=== PATIENT | female | born 1970 | race Two or more races ===

== ENCOUNTER 2020-12-22 13:31 | Emergency (ER) | payer MEDICARE, MEDICAID ==
[~2020-12-22] VITALS: Ht 162.6 cm; Wt 107.0 kg
[~2020-12-22 13:31] MED LIST: ATOR10TA52 PO; SERT50TA19 PO; TRAM50TA2 PO; WARF3TAB20 PO
[2020-12-22 14:35] LABS: Basophils # (auto) 0.1 10 ^3/uL (0-0.2); Basophils % (auto) 0.7 % (0.0-2.0); Eosinophils # (auto) 0.1 10 ^3/uL (0-0.8); Eosinophils % (auto) 1.5 % (0.0-7.0); Hematocrit 47.7 % (36.0-46.0); Hemoglobin 15.3 g/dL (12.2-16.2); Lymphocytes # (auto) 1.3 10 ^3/uL (0.4-5.4); Lymphocytes % (auto) 13.9 % (10.0-50.0); Mean Corpuscular Hgb Conc. 32.1 g/dL (32.0-36.0); Mean Corpuscular Volume 87.3 fL (80.0-100.0); Monocytes # (auto) 0.9 10 ^3/uL (0-1.3); Monocytes % (auto) 9.2 % (0.0-12.0); Neutrophils # (auto) 7.1 10 ^3/uL (1.6-8.6); Neutrophils % (auto) 74.7 % (37.0-80.0); Nucleated Red Blood Cells % 0.1 %; Red Blood Cells 5.47 10^6/uL (4.0-5.20); Red Cell Distribution Width 15.2 % (11.8-14.3); White Blood Cell 9.6 10^3/uL (4.4-10.8)
[2020-12-22 14:49] LABS: Potassium 3.2 mmol/L (3.5-5.1)
[2020-12-22 14:56] LABS: Albumin 3.3 g/dL (3.4-5.0); BUN/Creatinine Ratio 23.3; Bilirubin, Total 0.6 mg/dL (0.2-1.0); Calcium 9.1 mg/dL (8.5-10.1); Total Protein 7.7 g/dL (6.4-8.2)
[2020-12-22 18:04] LABS: Urine Bacteria NONE SEEN /hpf (None Seen); Urine Blood Negative /uL (Negative); Urine Specific Gravity 1.008 (1.001-1.035); Urine WBC 1 /hpf (0 - 5)
[2020-12-22 20:00] VITALS: BP 116/65
== END 2020-12-22 20:18 | disposition home or self-care (01) ==
LOC: ER 13:31
DX: L03.311 Cellulitis of abdominal wall (principal); I10 Essential (primary) hypertension; E78.5 Hyperlipidemia, unspecified; E03.9 Hypothyroidism, unspecified; Z90.49 Acquired absence of other specified parts of digestive tract; Z79.01 Long term (current) use of anticoagulants; Z79.899 Other long term (current) drug therapy; Z88.0 Allergy status to penicillin; Z88.1 Allergy status to other antibiotic agents
CPT/HCPCS: 36415; 74176; 80053; 81001; 83690; 85025

== ENCOUNTER 2021-08-22 19:42 | Emergency (ER) | payer MEDICARE, MEDICAID ==
[~2021-08-22] VITALS: Ht 162.6 cm; Wt 103.0 kg
[2021-08-22] MEDS ORDERED: FLUORESCEIN SOD OPTH TEST STRIP EACHEYE ONE (21:30)
[2021-08-22] MEDS ORDERED: TETRACAINE HCL 0.5% OPTH(EYE) SOLN 4ML EACHEYE ONE (21:30)
[2021-08-22] MEDS ORDERED: FLUORESCEIN SOD OPTH TEST STRIP RIGHTEYE ONE (22:30)
[2021-08-23 04:06] VITALS: BP 101/74
== END 2021-08-23 04:17 | disposition short-term general hospital (02) ==
LOC: ER 19:42
DX: S05.01XA Injury of conjunctiva and corneal abrasion without foreign body, right eye, initial encounter (principal); H16.001 Unspecified corneal ulcer, right eye; X58.XXXA Exposure to other specified factors, initial encounter; Y93.89 Activity, other specified; Y92.89 Other specified places as the place of occurrence of the external cause; Y99.8 Other external cause status

== ENCOUNTER 2021-08-25 11:39 | Inpatient (IN) | payer MEDICARE, MEDICAID ==
[~2021-08-25] VITALS: Ht 162.6 cm; Wt 110.9 kg
[2021-08-25 13:44] LABS: Basophils # (auto) 0.1 10 ^3/uL (0-0.2); Basophils % (auto) 0.9 % (0.0-2.0); Eosinophils # (auto) 0.3 10 ^3/uL (0-0.8); Eosinophils % (auto) 3.9 % (0.0-7.0); Hemoglobin 13.7 g/dL (12.2-16.2); Lymphocytes % (auto) 15.2 % (10.0-50.0); Mean Corpuscular Hemoglobin 30.1 pg (28.0-32.0); Mean Corpuscular Hgb Conc. 33.5 g/dL (32.0-36.0); Mean Corpuscular Volume 89.6 fL (80.0-100.0); Monocytes # (auto) 0.4 10 ^3/uL (0-1.3); Monocytes % (auto) 6.8 % (0.0-12.0); Neutrophils # (auto) 4.8 10 ^3/uL (1.6-8.6); Neutrophils % (auto) 73.2 % (37.0-80.0); Red Blood Cells 4.57 10^6/uL (4.0-5.20); Red Cell Distribution Width 15.3 % (11.8-14.3); White Blood Cell 6.6 10^3/uL (4.4-10.8)
[2021-08-25 13:59] LABS: Albumin 3.7 g/dL (3.4-5.0); Calcium 8.8 mg/dL (8.5-10.1)
[2021-08-25] MEDS ORDERED: FUROSEMIDE 40 MG/4 ML VIAL IV ONE (14:00)
[2021-08-25 14:01] LABS: Bilirubin, Total 0.5 mg/dL (0.2-1.0); Total Protein 7.2 g/dL (6.4-8.2)
[2021-08-25 14:15] LABS: INR 3.91 (0.9-1.15); Partial Thromboplastin Time 43.1 sec (23.6-33.0)
[2021-08-25] MEDS ORDERED: POTASSIUM CHL 20 Meq TABLET PO ONE (17:15)
[2021-08-25] MEDS ORDERED: levoFLOXacin 500MG 100 ML IV ONE (20:45)
[2021-08-25] MEDS ORDERED: ACETAMINOPHEN 325 MG TAB PO PRN (22:30)
[2021-08-25] MEDS ORDERED: DOCUSATE SOD 100 MG CAP PO PRN (22:30)
[2021-08-25] MEDS ORDERED: HYDROcodone-ACET 5/325MG TAB PO PRN (22:30)
[2021-08-25] MEDS ORDERED: ONDANSETRON HCL 4 MG/2 ML VIAL IV PRN (22:30)
[2021-08-25] MEDS ORDERED: NITROGLYCERIN 0.4 MG SL TAB SL PRN (23:15)
[2021-08-25] MEDS ORDERED: MORPHINE SULFATE INJ 2 MG/ml SYRG IV PRN (23:15)
[2021-08-26 03:54] LABS: Urine Bacteria FEW /hpf (None Seen); Urine Blood Negative /uL (Negative); Urine Mucus FEW (None Seen); Urine Specific Gravity 1.015 (1.001-1.035); Urine WBC <1 /hpf (0 - 5)
[2021-08-26] MEDS: SODIUM CHLOR 0.9% PF (SALINE LOCK) 10ML VIAL/SYR IV SCH ×3 (05:32→21:30)
[2021-08-26] MEDS ORDERED: AMBR10TA4 PO (05:46)
[2021-08-26] MEDS ORDERED: RIOC1TAB14 PO (05:46)
[2021-08-26 07:51] LABS: Basophils # (auto) 0 10 ^3/uL (0-0.2); Basophils % (auto) 0.8 % (0.0-2.0); Eosinophils # (auto) 0.3 10 ^3/uL (0-0.8); Eosinophils % (auto) 5.7 % (0.0-7.0); Hematocrit 40.7 % (36.0-46.0); Hemoglobin 13.5 g/dL (12.2-16.2); Lymphocytes # (auto) 0.9 10 ^3/uL (0.4-5.4); Lymphocytes % (auto) 17.6 % (10.0-50.0); Mean Corpuscular Hemoglobin 29.8 pg (28.0-32.0); Mean Corpuscular Hgb Conc. 33.2 g/dL (32.0-36.0); Mean Corpuscular Volume 89.8 fL (80.0-100.0); Monocytes # (auto) 0.5 10 ^3/uL (0-1.3); Monocytes % (auto) 9.9 % (0.0-12.0); Neutrophils # (auto) 3.2 10 ^3/uL (1.6-8.6); Nucleated Red Blood Cells % 0.3 %; Red Blood Cells 4.54 10^6/uL (4.0-5.20); Red Cell Distribution Width 15.7 % (11.8-14.3); White Blood Cell 4.9 10^3/uL (4.4-10.8)
[2021-08-26 08:11] LABS: Albumin 3.5 g/dL (3.4-5.0); BUN/Creatinine Ratio 26.8; Calcium 8.9 mg/dL (8.5-10.1); Potassium 3.8 mmol/L (3.5-5.1)
[2021-08-26 08:15] LABS: Bilirubin, Total 0.6 mg/dL (0.2-1.0)
[2021-08-26] MEDS ORDERED: AZITHROMYCIN 500MG/ 250ML 250 ML IV SCH (10:00)
[2021-08-26] MEDS ORDERED: HEPARIN SODIUM (PORCINE) 5000 UNITS/ML 1ML VIAL SC SCH (10:00)
[2021-08-26] MEDS: ASCORBIC ACID 500 MG TAB PO SCH ×2 (11:29→21:30)
[2021-08-26] MEDS: ZINC SULFATE 220mg CAP or TAB PO SCH (11:29)
[2021-08-26] MEDS: FAMOTIDINE (10MG/ML) 2ML VL IV SCH (11:30)
[2021-08-26] MEDS: FUROSEMIDE 40 MG/4 ML VIAL IV SCH (11:32)
[2021-08-26 14:16] LABS: INR 3.42 (0.9-1.15); Partial Thromboplastin Time 44.2 sec (23.6-33.0)
[2021-08-26] MEDS: ADEMPAS 2.5 MG PO SCH ×2 (14:19→22:31)
[2021-08-26 15:10] LABS: Urine Bacteria MANY /hpf (None Seen); Urine Blood Negative /uL (Negative); Urine WBC 14 /hpf (0 - 5)
[2021-08-26 15:19] LABS: Protein, Urine 26.2 mg/dL (0.0-11.9)
[2021-08-26] MEDS ORDERED: WARFARIN SODIUM 1 MG TAB PO ONE (17:00)
[2021-08-26] MEDS: SODIUM CHLORIDE 0.9% 1,000 ML IV SCH ×2 (17:01→18:01)
[2021-08-26] MEDS ORDERED: levoFLOXacin 500MG 100 ML IV ONE (17:30)
[2021-08-26 20:06] VITALS: BP 96/61
[2021-08-26] MEDS ORDERED: ATOR20TA50 PO ×2 (20:49→21:29)
[2021-08-26] MEDS ORDERED: diphenhdrAMINE HCL 25 MG CAP PO ONE ×2 (21:15→21:41)
[2021-08-26] MEDS ORDERED: FURO40TA4 PO (21:20)
[2021-08-26] MEDS ORDERED: FENO160T8 PO (21:20)
[2021-08-26] MEDS ORDERED: TRIA0.5C TOP (21:20)
[2021-08-26] MEDS ORDERED: CHOL1TAB27 PO (21:20)
[2021-08-26] MEDS ORDERED: ONDA-188 PO (21:20)
[2021-08-26] MEDS ORDERED: CHOL500033 (21:20)
[2021-08-26] MEDS ORDERED: MOXI0.5S3 EACHEYE (21:20)
[2021-08-26] MEDS ORDERED: TRI05TP TOP (21:20)
[2021-08-26] MEDS ORDERED: RIOC1TAB15 (21:20)
[2021-08-26] MEDS ORDERED: POTA-264 (21:20)
[2021-08-26] MEDS ORDERED: ERY05OO EACHEYE (21:20)
[2021-08-26] MEDS ORDERED: METO5TAB5 PO (21:20)
[2021-08-26] MEDS ORDERED: LEV25T PO (21:20)
[2021-08-26] MEDS ORDERED: DICL50TA2 PO (21:20)
[2021-08-26] MEDS ORDERED: VENL150C58 PO (21:20)
[2021-08-26] MEDS: ATORVASTATIN 20 MG TAB PO SCH (21:30)
[2021-08-26] MEDS ORDERED: CHOL500023 PO (21:34)
[2021-08-26] MEDS ORDERED: POTA10TA51 PO (21:34)
[2021-08-26] MEDS ORDERED: POTA1TAB61 PO (21:34)
[2021-08-26 22:00] VITALS: BP 97/64
[2021-08-27] VITALS (7 sets, daily range): BP systolic 96–124; BP diastolic 38–80
[2021-08-27 05:09] LABS: Basophils # (auto) 0 10 ^3/uL (0-0.2); Basophils % (auto) 0.7 % (0.0-2.0); Eosinophils # (auto) 0.2 10 ^3/uL (0-0.8); Eosinophils % (auto) 4.6 % (0.0-7.0); Hematocrit 38.6 % (36.0-46.0); Hemoglobin 12.9 g/dL (12.2-16.2); Lymphocytes % (auto) 18.7 % (10.0-50.0); Mean Corpuscular Hemoglobin 30.5 pg (28.0-32.0); Mean Corpuscular Hgb Conc. 33.5 g/dL (32.0-36.0); Mean Corpuscular Volume 91.1 fL (80.0-100.0); Monocytes # (auto) 0.5 10 ^3/uL (0-1.3); Monocytes % (auto) 9.2 % (0.0-12.0); Neutrophils # (auto) 3.5 10 ^3/uL (1.6-8.6); Neutrophils % (auto) 66.8 % (37.0-80.0); Red Blood Cells 4.24 10^6/uL (4.0-5.20); Red Cell Distribution Width 15.3 % (11.8-14.3); White Blood Cell 5.3 10^3/uL (4.4-10.8)
[2021-08-27 05:24] LABS: INR 3.32 (0.9-1.15); Partial Thromboplastin Time 43.5 sec (23.6-33.0)
[2021-08-27] MEDS: SODIUM CHLOR 0.9% PF (SALINE LOCK) 10ML VIAL/SYR IV SCH ×3 (05:53→21:09)
[2021-08-27] MEDS: ADEMPAS 2.5 MG PO SCH ×3 (05:53→21:09)
[2021-08-27] MEDS: SODIUM CHLORIDE 0.9% 1,000 ML IV SCH ×3 (06:09→22:25)
[2021-08-27] MEDS ORDERED: [UNRECOGNIZED DRUG - OTHER] PO SCH (10:00)
[2021-08-27] MEDS ORDERED: levoFLOXacin 250MG 50 ML IV SCH (10:00)
[2021-08-27] MEDS: ASCORBIC ACID 500 MG TAB PO SCH ×2 (10:09→21:09)
[2021-08-27] MEDS: ZINC SULFATE 220mg CAP or TAB PO SCH (10:09)
[2021-08-27] MEDS: FAMOTIDINE (10MG/ML) 2ML VL IV SCH (10:10)
[2021-08-27] MEDS: FUROSEMIDE 40 MG/4 ML VIAL IV SCH (10:10)
[2021-08-27] MEDS: SERTRALINE HCL 50 MG TAB PO SCH (10:10)
[2021-08-27] MEDS: AZITHROMYCIN 500MG/ 250ML 250 ML IV SCH (12:59)
[2021-08-27] MEDS ORDERED: TEMAZEPAM 15 MG CAP PO ONE (21:00)
[2021-08-27] MEDS: ATORVASTATIN 20 MG TAB PO SCH (21:09)
[2021-08-27] MEDS: DOCUSATE SOD 100 MG CAP PO SCH (21:09)
[2021-08-28 04:53] LABS: INR 2.39 (0.9-1.15); Partial Thromboplastin Time 40.3 sec (23.6-33.0)
[2021-08-28 05:11] VITALS: BP 118/61
[2021-08-28] MEDS: SODIUM CHLOR 0.9% PF (SALINE LOCK) 10ML VIAL/SYR IV SCH ×2 (05:44→14:03)
[2021-08-28] MEDS: ADEMPAS 2.5 MG PO SCH ×2 (05:45→14:03)
[2021-08-28] MEDS: SODIUM CHLORIDE 0.9% 1,000 ML IV SCH (06:40)
[2021-08-28 08:15] VITALS: BP 118/67
[2021-08-28 09:00] VITALS: BP 118/67
[2021-08-28] MEDS: FUROSEMIDE 40 MG/4 ML VIAL IV SCH (09:17)
[2021-08-28] MEDS: FAMOTIDINE (10MG/ML) 2ML VL IV SCH (09:18)
[2021-08-28] MEDS: AZITHROMYCIN 500MG/ 250ML 250 ML IV SCH (09:18)
[2021-08-28] MEDS: DOCUSATE SOD 100 MG CAP PO SCH (09:19)
[2021-08-28] MEDS: SERTRALINE HCL 50 MG TAB PO SCH (09:19)
[2021-08-28] MEDS: ZINC SULFATE 220mg CAP or TAB PO SCH (09:19)
[2021-08-28] MEDS: ASCORBIC ACID 500 MG TAB PO SCH (09:19)
[2021-08-28] MEDS ORDERED: AZIT500T66 PO (09:36)
[2021-08-28 13:00] VITALS: BP 96/62
[2021-08-28 13:22] VITALS: BP 118/67
[2021-08-28] MEDS ORDERED: WARFARIN SODIUM 2 MG TAB PO ONE (17:00)
== END 2021-08-28 18:50 | disposition home or self-care (01) | DRG 193 ==
LOC: EDBD 11:39 → ER 11:39 → TELE 23:05 → TELE-WESTW 08-26 17:37
PROVIDERS: ADMIT Nurse Practitioner Family; ATTEND Family Medicine
DX: J18.9 Pneumonia, unspecified organism (principal); J96.01 Acute respiratory failure with hypoxia; Z68.41 Body mass index [BMI] 40.0-44.9, adult; I13.0 Hypertensive heart and chronic kidney disease with heart failure and stage 1 through stage 4 chronic kidney disease, or unspecified chronic kidney disease; I27.20 Pulmonary hypertension, unspecified; E87.6 Hypokalemia; N18.9 Chronic kidney disease, unspecified; E03.9 Hypothyroidism, unspecified; Z20.822 Contact with and (suspected) exposure to COVID-19; E11.22 Type 2 diabetes mellitus with diabetic chronic kidney disease; E66.01 Morbid (severe) obesity due to excess calories; E78.00 Pure hypercholesterolemia, unspecified; E78.5 Hyperlipidemia, unspecified; F32.A Depression, unspecified; Z79.01 Long term (current) use of anticoagulants; Z83.3 Family history of diabetes mellitus; Z86.711 Personal history of pulmonary embolism; Z88.0 Allergy status to penicillin; Z88.8 Allergy status to other drugs, medicaments and biological substances; I50.9 Heart failure, unspecified
CPT/HCPCS: 36415; 36600; 71045; 76775; 80053; 81001; 82306; 82570; 82805; 83036; 83605; 83880; 83970; 84100; 84156; 84300; 84443; 84484; 85025; 85379; 85610; 85730; 87040; 93005; 93306; 93970; 96365; 96372; 96375; 99291; G0378; J1956; J3490

== ENCOUNTER 2021-09-20 19:35 | Emergency (ER) | payer MEDICARE, MEDICAID ==
[~2021-09-20 19:35] MED LIST changes: +AMBR10TA4 PO; -ATOR10TA52 PO; +ATOR20TA50 PO; +AZIT500T66 PO; +CHOL500023 PO; +DICL50TA2 PO; +ERY05OO EACHEYE; +FENO160T8 PO; +FURO40TA4 PO; +LEV25T PO; +METO5TAB5 PO; +MOXI0.5S3 EACHEYE; +ONDA-188 PO; +POTA1TAB61 PO; +RIOC1TAB14 PO; +TRIA0.5C TOP; +VENL150C58 PO
[2021-09-20 20:00] VITALS: BP 109/87
[2021-09-20 21:07] LABS: Alanine Aminotransferase 25 U/L (13-56); Albumin 3.8 g/dL (3.4-5.0); Anion Gap 11 (5-15); Aspartate Aminotransferase 26 U/L (15-37); Blood Urea Nitrogen 72 mg/dL (7-18); Calcium 9.3 mg/dL (8.5-10.1); Carbon Dioxide 26 mmol/L (21-32); Chloride 101 mmol/L (98-107); GFR African American 33 mL/min; GFR Non-African American 27 mL/min; Glucose 117 mg/dL (74-106); Potassium 3.1 mmol/L (3.5-5.1); Sodium 138 mmol/L (136-145)
[2021-09-20 21:10] LABS: Alkaline Phosphatase 53 U/L (45-117); Bilirubin, Total 0.5 mg/dL (0.2-1.0); Total Protein 7.9 g/dL (6.4-8.2)
[2021-09-20 21:27] LABS: Basophils # (auto) 0.3 10 ^3/uL (0-0.2); Basophils % (auto) 2.9 % (0.0-2.0); Eosinophils # (auto) 0.2 10 ^3/uL (0-0.8); Eosinophils % (auto) 1.8 % (0.0-7.0); Hematocrit 42.7 % (36.0-46.0); Hemoglobin 13.8 g/dL (12.2-16.2); Lymphocytes # (auto) 0.8 10 ^3/uL (0.4-5.4); Lymphocytes % (auto) 9.7 % (10.0-50.0); Mean Corpuscular Hemoglobin 29.2 pg (28.0-32.0); Mean Corpuscular Hgb Conc. 32.3 g/dL (32.0-36.0); Mean Corpuscular Volume 90.5 fL (80.0-100.0); Monocytes # (auto) 0.7 10 ^3/uL (0-1.3); Monocytes % (auto) 7.5 % (0.0-12.0); Neutrophils # (auto) 6.8 10 ^3/uL (1.6-8.6); Neutrophils % (auto) 78.1 % (37.0-80.0); Nucleated Red Blood Cells % 0.1 %; Red Blood Cells 4.71 10^6/uL (4.0-5.20); Red Cell Distribution Width 15.5 % (11.8-14.3); White Blood Cell 8.7 10^3/uL (4.4-10.8)
[2021-09-20 21:33] LABS: INR 2.07 (0.9-1.15); Partial Thromboplastin Time 34.1 sec (24.6-33.4)
[2021-09-21 01:32] LABS: Urine Bacteria FEW /hpf (None Seen); Urine Blood Negative /uL (Negative); Urine Hyaline Cast FEW /lpf (0 - 2); Urine Mucus FEW (None Seen); Urine Specific Gravity 1.013 (1.001-1.035); Urine WBC 2 /hpf (0 - 5)
== END 2021-09-21 01:34 | disposition left against medical advice (07) ==
LOC: EDBD 19:35 → ER 19:35 → EDUNIT# 19:35 → ER 09-21 01:34
DX: R07.89 Other chest pain (principal); E11.22 Type 2 diabetes mellitus with diabetic chronic kidney disease; I12.9 Hypertensive chronic kidney disease with stage 1 through stage 4 chronic kidney disease, or unspecified chronic kidney disease; N18.9 Chronic kidney disease, unspecified
CPT/HCPCS: 36415; 71045; 80053; 81001; 83880; 84484; 85025; 85610; 85652; 85730; 86141

== ENCOUNTER 2022-08-28 17:00 | Emergency (ER) | payer MEDICARE, MEDICAID ==
[~2022-08-28] VITALS: Ht 162.6 cm; Wt 103.5 kg
[~2022-08-28 17:00] MED LIST changes: +FENO160T PO; -FENO160T8 PO; +SERT-206 PO; -SERT50TA19 PO
[2022-08-28 18:45] LABS: Basophils # (auto) 0 10 ^3/uL (0-0.2); Basophils % (auto) 0.7 % (0.0-2.0); Eosinophils # (auto) 0.2 10 ^3/uL (0-0.8); Eosinophils % (auto) 2.7 % (0.0-7.0); Hematocrit 44.8 % (36.0-46.0); Hemoglobin 14.8 g/dL (12.2-16.2); Lymphocytes # (auto) 1.2 10 ^3/uL (0.4-5.4); Lymphocytes % (auto) 18.4 % (10.0-50.0); Mean Corpuscular Hemoglobin 28.2 pg (28.0-32.0); Mean Corpuscular Hgb Conc. 33.1 g/dL (32.0-36.0); Mean Corpuscular Volume 85.1 fL (80.0-100.0); Monocytes # (auto) 0.6 10 ^3/uL (0-1.3); Neutrophils # (auto) 4.3 10 ^3/uL (1.6-8.6); Neutrophils % (auto) 68.2 % (37.0-80.0); Nucleated Red Blood Cells % 0.1 %; Red Blood Cells 5.27 10^6/uL (4.0-5.20); Red Cell Distribution Width 15.2 % (11.8-14.3); White Blood Cell 6.3 10^3/uL (4.4-10.8)
[2022-08-28 18:58] LABS: INR 2.42 (0.9-1.15)
[2022-08-28 19:02] LABS: Albumin 3.9 g/dL (3.4-5.0); Calcium 8.9 mg/dL (8.5-10.1); Potassium 3.5 mmol/L (3.5-5.1)
[2022-08-28 19:05] LABS: BUN/Creatinine Ratio 24.5 (10.0-20.0); Bilirubin, Total 0.4 mg/dL (0.2-1.0); Total Protein 7.7 g/dL (6.4-8.2)
[2022-08-28] MEDS ORDERED: IOHEXOL 300 MG/ML 100ML BOTTLE IJ ONE (19:44)
[2022-08-28] MEDS ORDERED: AZITTAB PO (21:42)
[2022-08-28] MEDS ORDERED: METH4PAK PO (21:42)
[2022-08-28] MEDS ORDERED: IPRATROPIUM BROM 0.5 MG/2.5ML INH SOL NEB ONE (21:45)
[2022-08-28] MEDS ORDERED: DexAMETHasone SOD PHOS 10MG/1ML VIAL INJ IM ONE (21:45)
[2022-08-28] MEDS ORDERED: ALBUTEROL SULF 2.5 MG/0.5ML(0.5%) NEB SOLN NEB ONE (21:45)
[2022-08-28 23:00] VITALS: BP 101/60
== END 2022-08-28 23:14 | disposition home or self-care (01) ==
LOC: ER 17:00
DX: J18.9 Pneumonia, unspecified organism (principal); R04.2 Hemoptysis; E11.22 Type 2 diabetes mellitus with diabetic chronic kidney disease; I12.9 Hypertensive chronic kidney disease with stage 1 through stage 4 chronic kidney disease, or unspecified chronic kidney disease; N18.9 Chronic kidney disease, unspecified; J44.9 Chronic obstructive pulmonary disease, unspecified; E78.5 Hyperlipidemia, unspecified; Z88.0 Allergy status to penicillin; Z88.1 Allergy status to other antibiotic agents
CPT/HCPCS: 36415; 71045; 71275; 80053; 82962; 85025; 85610; 85730; 94640; 96372; 99285; J1100; J7644; Q9967

== ENCOUNTER 2024-08-20 11:39 | Inpatient (IN) | payer MEDICARE, MEDICAID ==
[~2024-08-20] VITALS: Ht 162.6 cm; Wt 92.4 kg
[~2024-08-20 11:39] MED LIST changes: +AZITTAB PO; +METH4PAK PO; +POTA-215 PO; -POTA1TAB61 PO
--- NOTE | 2024-08-20 12:05 | ED.PDOC ---
HPI (NEURO) HPI Comments 54 y/o F, BIBA, with PMHx of CHF, HLD, DM, PE, CKD, GOUT, HTN, and h yperthyroidism presents to the ED for CC of s/p syncopal episode. EMS reports, patient is coming from [facility] where she had a witnessed syncopal episode while eating, lasting approximately 30-40 seconds. Patient states, that while shopping she began to feel dizzy and when she went to sit down to eat she blacked out. Patient endorses, history of syncopal episodes. In route to the ED, Accu-check read at 103 and all VSS. Patient denies head injury, nausea, vomiting, or vision changes. No other symptoms or modifying factors present at this time. Chief Complaint: Syncope Time Seen by MD: 11:50 Primary Care Provider: DEVYN Reviewed Notes: Nurses Notes, Loan Servicing Representative Notes, Medications, Allergies Information Source: Patient, Emergency Med Personnel Mode of Arrival: EMS Severity: Moderate Dizziness/Weakness Severity: Does not affect activitie Headache Severity: Moderate Timing: Minutes Duration: Since onset Prehospital treatment: None Headache Location: Generalized Onset: At rest Circumstances: Spontaneous Symptoms: Syncope, Vertigo Before: Normal During: Awake, LOC After: Normal Mentation Modifying factors: Nothing Associated Signs and Symptoms: Headache Past Medical History PAST MEDICAL HISTORY: CKF, COPD, DM, Gout, High Lipids, HTN, PE, Thyroid Surgical History: Appendectomy, 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: No Pertinent 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 Family History Family History: Family hx of DM, Family hx of heart lisa, Family hx of lung lisa Social History Smoker: Non-Smoker Alcohol: Denies ETOH Use Drugs: Denies Drug Use Lives In: Home Constitutional: denies: chills, diaphoresis, fatigue, fever, malaise, sweats, weakness, others EENTM: denies: blurred vision, double vision, ear bleeding, ear discharge, ear drainage, ear pain, ear ringing, eye pain, eye redness, hearing loss, mouth pain, mouth swelling, nasal discharge, nose bleeding, nose congestion, nose pain, photophobia, tearing, throat pain, throat swelling, voice changes, others Respiratory: denies: cough, hemoptysis, orthopnea, SOB at rest, shortness of breath, SOB with excertion, stridor, wheezing, others Cardiovascular: denies: chest pain, dizzy spells, diaphoresis, Dyspnea on exertion, edema, irregular heart beat, left arm pain, lightheadedness, palpitations, PND, syncope, others Gastrointestinal: denies: abdomen distended, abdominal pain, blood streaked bowels, constipated, diarrhea, dysphagia, difficulty swallowing, hematemesis, melena, nausea, poor appetite, poor fluid intake, rectal bleeding, rectal pain, vomiting, others Genitourinary: denies: abnormal vagina bleeding, burning, dyspareunia, dysuria, flank pain, frequency, hematuria, incontinence, pain, , vagina discharge, urgency, others Neurological: reports: dizziness, headache; denies: fainting, left sided numbness, left sided weakness, numbness, paresthesia, pre-existing deficit, right sided numbness, right sided weakness, seizure, speech problems, tingling, tremors, weakness, others Musculoskeletal: denies: back pain, gout, joint pain, joint swelling, muscle pain, muscle stiffness, neck pain, others Integumetry: denies: bruises, change in color, change in hair/nails, dryness, laceration, lesions, lumps, rash, wounds, others Allergic/Immunocompromised: denies: Difficulty Healing, Frequent Infections, Hives, Itching, others Hematologic/Lymphatic: denies: anemia, blood clots, easy bleeding, easy bruising, swollen glands, others Endocrine: denies: excessive hunger, excessive sweating, excessive thirst, excessive urination, flushing, intolerance to cold, intolerance to heat, unexplained weight gain, unexplained weight loss, others Psychiatric: denies: anxiety, bipolar disorder, depression, hopeless, panic disorder, schizophrenia, sleepless, suicidal, others All Other Systems: Reviewed and Negative Physical Exam General Appearance: No Apparent Distress HEENT: Normal ENT Inspection, Pharynx Normal, TMs Normal Neck: Full Range of Motion, Non-Tender, Normal, Normal Inspection Respiratory: Chest Non-Tender, Lungs Clear, No Accessory Muscle Use, No Respiratory Distress, Normal Breath Sounds Cardiovascular: No Edema, No JVD, No Murmur, No Gallop, Normal Peripheral Pul ses, Regular Rate/Rhythm Breast Exam: Deferred Gastrointestinal: No Organomegaly, Non Tender, No Pulsatile Mass, Normal Bowel Sounds, Soft Genitalia: Deferred Pelvic: Deferred Rectal: Deferred Extremities: No calf tenderness, Normal capillary refill, Normal inspection, Normal range of motion, Non-tender, No pedal edema Musculoskeletal : Apperance: Normal Neurologic: Alert, anesthetic assistant II-XII nml as Tested, Motor Weakness, Normal Affect, Normal Mood, No Sensory Deficits Cerebellar Function: Normal Reflexes: Normal Skin: Dry, Normal Color, Warm Lymphatic: No Adenopathy EKG EKG : Pulse Rate (adult): 67 Aladdin: RAD Cardiac Rhythm: NSR ST: Nonsp Was a procedure done? Was a procedure done?: No Differential Diagnosis (SZ) Seizure: N/A General Weakness: Anemia, Dehydration, Electrolyte imbalance, Pulmonary embol us, Vertigo: central, Vertigo: peripheral, Vestibular neuronitis Headache: Cluster, Migraine X-Ray, Labs, Meds, VS Vital Signs Date Time Temp Pulse Resp B/P (MAP) Pulse Ox O2 Delivery O2 Flow Rate FiO2 08/20/24 11:53 98.1 73 18 107/64 (78) 97 98.1 08/20/24 11:51 67 Lab Test 08/20/24 13:09 Range/Units White Blood Count 6.3 4.4-10.8 10^3/uL Red Blood Count 5.91 H 4.0-5.20 10^6/uL Hemoglobin 16.8 H 12.2-16.2 g/dL Hematocrit 51.0 H 36.0-46.0 % Mean Corpuscular Volume 86.4 80.0-100.0 fL Mean Corpuscular Hemoglobin 28.4 28.0-32.0 pg Mean Corpuscular Hemoglobin Concent 32.9 32.0-36.0 g/dL Red Cell Distribution Width 14.3 11.8-14.3 % Platelet Count 319 140-450 10^3/uL Mean Platelet Volume 7.9 6.9-10.8 fL Neutrophils (%) (Auto) 75.0 37.0-80.0 % Lymphocytes (%) (Auto) 14.6 10.0-50.0 % Monocytes (%) (Auto) 7.8 0.0-12.0 % Eosinophils (%) (Auto) 1.9 0.0-7.0 % Basophils (%) (Auto) 0.7 0.0-2.0 % Neutrophils # (Auto) 4.7 1.6-8.6 10 ^3/uL Lymphocytes # (Auto) 0.9 0.4-5.4 10 ^3/uL Monocytes # (Auto) 0.5 0-1.3 10 ^3/uL Eosinophils # (Auto) 0.1 0-0.8 10 ^3/uL Basophils # (Auto) 0 0-0.2 10 ^3/uL Nucleated Red Blood Cells 0.2 % Prothrombin Time Pending Prothrombin Time INR Pending Activated Partial Thromboplast Time Pending Sodium Level 144 136-145 mmol/L Potassium Level 4.2 3.5-5.1 mmol/L Chloride Level 107 98-107 mmol/L Carbon Dioxide Level 26 20-31 mmol/L Anion Gap 11 5-15 Blood Urea Nitrogen Pending Creatinine Pending Glomerular Filtration Rate Calc Pending BUN/Creatinine Ratio Pending Serum Glucose Pending Calcium Level 10.7 H 8.7-10.4 mg/dL Troponin I High Sensitivity Pending CXR: IMPRESSION: No acute disease. HEAD CT: IMPRESSION: 1. No evidence of acute intracranial abnormality. The patient is CBC is within normal limits The chemistry panel is within normal limits The patient remained somewhat symptomatic The patient is being admitted at this time An IV Hep-Lock was established and the patient was given normal saline as a bolus. Images Reviewed?: Images reviewed and evaluated by me Time of 1ST Reevaluation: 12:20 Reevaluation 1ST: Unchanged Patient Education/Counseling: Diagnosis, Treatment, Prognosis Family Education/Counseling: No Family Present Departure 1 Departure Time of Disposition: 13:35 Impression: Primary Impression: Autonomic dysfunction Additional Impression: Episode of syncope Qualified Codes: R55 - Syncope and collapse Disposition: 09 ADMITTED INPATIENT Admit to: [facility] Condition: Fair Critical Care Note Critical Care Time?: No Stability Stability form required: Yes Unstable for transfer: Telemetry monitoring (Telemetry monitoring required), ED Physician Assesment (Clinical assesment) Heart Score Heart Score: Heart Score Response (Comments) Value History Slightly Suspicious 0 EKG Normal 0 Age 45-64 1 Risk Factors 1 or 2 risk factors 1 Troponin N/A 0 Total 2 I personally scribed for ARUN BAXTER MD ([email or web address]) on 08/20/24 at 12:05. Electronically submitted by Jamaica Paul ([email or web address]). I personally scribed for ARUN BAXTER MD ([email or web address]) on 08/20/24 at 13:09. Electronically submitted by [place] Paul ([email or web address]). I personally scribed for ARUN BAXTER MD ([email or web address]) on 08/20/24 at 13:10. Electronically submitted by [place] Paul ([email or web address]). ARUN BAXTER MD Aug 20, 2024 12:05
--- NOTE | 2024-08-20 13:01 | DVH ---
EXAM: CT HEAD WITHOUT CONTRAST INDICATION: syncope TECHNIQUE: CT of the head without intravenous contrast. Coronal and sagittal reformatted images are s ubmitted. Radiation Dose : 1. Head: CT Dose: CTDI volume is 53.16 mGy. Dose-length product is 941.05 mGy*cm The dose indicators for CT are the volume Computed Tomography (CT) Dose Index (CTDIvol) and the Dose Length Product (DLP), and are measured in units of mGy and mGy-cm, respectively. These indicators are not patient dose, but values generated from the CT scanner acquisition factors. The report includes radiation exposure data for exposures received during this examination. All CT scans at this medical facility are performed using dose modulation techniques as appropriate to a performed exam including the following: Automated exposure control was utilized; adjustment of the MA and/or KV according to patient size; and use of iterative reconstruction technique. COMPARISON: None FINDINGS: There is no evidence of acute intracranial hemorrhage, extra-axial collection, mass effect, midline s hift, herniation or hydrocephalus. The ventricles, sulci and cisterns are age appropriate. The blount-white differentiation is intact. The visualized paranasal sinuses and mastoid air cells are clear. No depressed calvarial fracture. The surrounding soft tissues are unremarkable. IMPRESSION: 1. No evidence of acute intracranial abnormality.
--- NOTE | 2024-08-20 13:02 | DVH ---
CHEST RADIOGRAPH Indication: syncope Technique: Single frontal view of the chest was obtained COMPARISON: XY CHEST XRAY 1 VIEW on DOS: 08/28/22, CHEST PORTABLE on DOS: 09/20/21, CXRP on DOS: 2, CHEST PORTABLE on DOS: 08/25/21, CXRP on DOS: 08/25/21 FINDINGS: Lines and Tubes: Median sternotomy Lungs: Clear Pleura: No effusion. No pneumothorax. Cardiomediastinal contours: Unremarkable Bones: Unremarkable IMPRESSION: No acute disease.
[2024-08-20 13:24] LABS: Basophils # (auto) 0 10 ^3/uL (0-0.2); Basophils % (auto) 0.7 % (0.0-2.0); Eosinophils # (auto) 0.1 10 ^3/uL (0-0.8); Eosinophils % (auto) 1.9 % (0.0-7.0); Hemoglobin 16.8 g/dL (12.2-16.2); Lymphocytes # (auto) 0.9 10 ^3/uL (0.4-5.4); Lymphocytes % (auto) 14.6 % (10.0-50.0); Mean Corpuscular Hemoglobin 28.4 pg (28.0-32.0); Mean Corpuscular Hgb Conc. 32.9 g/dL (32.0-36.0); Mean Corpuscular Volume 86.4 fL (80.0-100.0); Monocytes # (auto) 0.5 10 ^3/uL (0-1.3); Monocytes % (auto) 7.8 % (0.0-12.0); Neutrophils # (auto) 4.7 10 ^3/uL (1.6-8.6); Nucleated Red Blood Cells % 0.2 %; Platelet Count (auto) 319 10^3/uL (140-450); Red Blood Cells 5.91 10^6/uL (4.0-5.20); Red Cell Distribution Width 14.3 % (11.8-14.3); White Blood Cell 6.3 10^3/uL (4.4-10.8)
[2024-08-20 13:32] LABS: Chloride 107 mmol/L (98-107); Potassium 4.2 mmol/L (3.5-5.1); Sodium 144 mmol/L (136-145)
[2024-08-20 13:33] LABS: Anion Gap 11 (5-15); Carbon Dioxide 26 mmol/L (20-31)
[2024-08-20 13:34] LABS: Calcium 10.7 mg/dL (8.7-10.4)
[2024-08-20 13:38] LABS: BUN/Creatinine Ratio 24.4 (10.0-20.0); Blood Urea Nitrogen 39 mg/dL (9-23); Glucose 93 mg/dL (74-106)
[2024-08-20 13:41] LABS: INR 3.81 (0.9-1.15); Prothrombin Time 35.4 sec (9.3-11.8)
[2024-08-20 14:52] LABS: Urine Bacteria None Seen /hpf (None Seen)
[2024-08-20 15:23] LABS: Amphetamine Screen, Urine Neg (NEGATIVE); Barbiturate Scree,Urine Neg (NEGATIVE); Benzodiazephine Screen, Urine Neg (NEGATIVE); Cocaine Screen, Urine Neg (NEGATIVE); Opiate Scree,Urine Neg (NEGATIVE)
[2024-08-20 15:40] LABS: Cannabinoid Screen, Urine Neg (NEGATIVE); Phencyclidine Screen, Urine Neg (NEGATIVE)
[2024-08-20 16:05] LABS: Urine Blood Negative /uL (Negative); Urine Clarity Clear (Clear); Urine Color Light-Yellow (Yellow); Urine Protein, UAD Negative (Negative); Urine Specific Gravity 1.012 (1.001-1.035); Urine Squamous Epithelial Cell FEW /hpf (<5); Urine Urobilinogen Normal (Negative); Urine WBC 8 /HPF (0-5)
[2024-08-20] MEDS ORDERED: SODIUM CHLORIDE 0.9% 1,000 ML IV ONE (23:45)
[2024-08-21] VITALS (7 sets, daily range): BP systolic 86–102; BP diastolic 58–62; PULSE 66–94; RESP 16–21; TEMP 96.6–98.4; O2SAT 90–93
[2024-08-21] MEDS: SODIUM CHLORIDE 0.9% 1,000 ML IV ONE (01:37)
--- NOTE | 2024-08-21 01:47 | DVH ---
Carotid Doppler Examination CLINICAL HISTORY: Syncope. r/o carotid stenosis. TECHNIQUE: Real-time high resolution grayscale imaging and color Doppler flow imaging with pulsed du plex sonography of the carotid and vertebral arteries is performed. Velocity criteria are extrapolated from angiographic diameter data as defined by the Society of Radio logists in Ultrasound Consensus Conference (Radiology 2003; 229: 340-346). FINDINGS: There is no significant blount scale stenosis. Arterial waveforms are satisfactory bilaterally. Ante grade flow noted in the bilateral vertebral arteries. Peak systolic velocities (cm/s): Right ICA proximal: 48.8 Right ICA mid: 77.9 Right ICA distal: 80.9 Right systolic ICA/CCA ratio: 1.2 Left ICA proximal: 40.9 Left ICA mid: 79.8 Left ICA distal: 49.4 Left systolic ICA/CCA ratio: 1.2 IMPRESSION: No hemodynamically significant stenoses or occlusions identified.
--- NOTE | 2024-08-21 03:08 | DVHHPRES ---
History of Present Illness Resident Creating Document: ELIGIOMUNASURJIT RESIDENT History of Present Illness Patient is a 54-year-old female with a past medical history of chronic kidney disease stage 3-4, TBI, congestive heart failure, pulmonary hypertension, CTEPH, PE, gout, hypertension, hypothyroidism presented to the ED with a chief complaint of episode of loss of consciousness. Patient reported he she was shopping at [employer] and she went to eat a hot dog, when she started reading she reported the food to be hot and she felt it got stuck in her throat, had difficu lty breathing and started to feel lightheaded following which she passed out. She was reportedly unconscious for 10-15 seconds, no abnormal movements were observed, no bowel or bladder incontinence. Patient reported that she has had similar episodes of loss of consciousness before when she gets dizzy on getting up from sitting position. Patient was diagnosed with a PE in 2016 following which she underwent open thorax surgery for removal of clot, was later diagnosed pulmonary hypertension type 4 CTEPH and is currently on medication Riociguat, macitentan and on warfarin. Patient denied any chest pain, palpitations, short ness of breath, headache, blurred vision. Past medical history: chronic kidney disease stage 3-4, TBI, congestive heart failure, pulmonary hypertension, CTEPH, PE, gout, hypertension, hypothyroidism Past surgical history: Appendectomy, , thoracotomy for clot removal Social history: Patient was a previous smoker but since the last 10 years denies smoking, alcohol, drug use Family history: Positive for blood clots in father Home medications: Riociguat 2.5 mg daily, macitentan 10 mg , warfarin 1 mg daily and 2 mg on , X 2 mg b.i.d., levothyroxine 25 mcg, atorvastatin 20, allopurinol 100 mg daily Review of Systems Review of Systems Patient seen and examined at the bedside Denies any dizziness, shortness of breath, palpitations, chest pain Allergies: Coded Allergies: Clindamycin (Verified Allergy, Unknown, 07/14/15) Levofloxacin (Verified Allergy, Unknown, 08/27/21) itchiness and patient reported rash. Penicillins (Verified Allergy, Unknown, 07/14/15) Medications Current Medications Medications Dose Ordered Sig/Janet Route Start Time Stop Time Status Last Admin Dose Admin Warfarin Sodium 1 mg DAILY@17 PO 08/21/24 17:00 UNV Exam Vital Signs Vital Signs Date Time Temp Pulse Resp B/P (MAP) Pulse Ox O2 Delivery O2 Flow Rate FiO2 08/20/24 22:07 98.1 70 16 92/69 (77) 96 98.1 Exam Gen - no pallor, no icterus, no cyanosis, no clubbing, no LAD, no edema . Skin - Patients skin is warm and dry. HEENT - normocephalic, atraumatic, moist mucous membranes. Neck - full ROM, no LAD, no JVD Pulmonary - B/L equal breath sounds, no crackles, no wheezing, no stridor. cardiovascular - regular S1,S2 heard, no added sounds, no murmurs heard. peripheral pulses normal radial 2+, pedal 2+. capillary refill normal <2 secs. GI - soft, nontender abdomen. no hepatospleenomegaly. Bowel sounds normoactive Neurological - Patient is A/O X 3 . Bilateral upper extremity strength 5/5, bilateral lower extremity strength 5/5, no facial droop, normal speech, no tremor, no sensory deficiets. Labs/Xrays Labs Test 08/20/24 16:04 08/20/24 13:09 08/20/24 12:58 Range/Units Troponin I High Sensitivity 5 </=34 ng/L White Blood Count 6.3 4.4-10.8 10^3/uL Red Blood Count 5.91 H 4.0-5.20 10^6/uL Hemoglobin 16.8 H 12.2-16.2 g/dL Hematocrit 51.0 H 36.0-46.0 % Mean Corpuscular Volume 86.4 80.0-100.0 fL Mean Corpuscular Hemoglobin 28.4 28.0-32.0 pg Mean Corpuscular Hemoglobin Concent 32.9 32.0-36.0 g/dL Red Cell Distribution Width 14.3 11.8-14.3 % Platelet Count 319 140-450 10^3/uL Mean Platelet Volume 7.9 6.9-10.8 fL Neutrophils (%) (Auto) 75.0 37.0-80.0 % Lymphocytes (%) (Auto) 14.6 10.0-50.0 % Monocytes (%) (Auto) 7.8 0.0-12.0 % Eosinophils (%) (Auto) 1.9 0.0-7.0 % Basophils (%) (Auto) 0.7 0.0-2.0 % Neutrophils # (Auto) 4.7 1.6-8.6 10 ^3/uL Lymphocytes # (Auto) 0.9 0.4-5.4 10 ^3/uL Monocytes # (Auto) 0.5 0-1.3 10 ^3/uL Eosinophils # (Auto) 0.1 0-0.8 10 ^3/uL Basophils # (Auto) 0 0-0.2 10 ^3/uL Nucleated Red Blood Cells 0.2 % Prothrombin Time 35.4 H 9.3-11.8 sec Prothrombin Time INR 3.81 H 0.9-1.15 Activated Partial Thromboplast Time 39.0 H 24.5-34.5 SEC Sodium Level 144 136-145 mmol/L Potassium Level 4.2 3.5-5.1 mmol/L Chloride Level 107 98-107 mmol/L Carbon Dioxide Level 26 20-31 mmol/L Anion Gap 11 5-15 Blood Urea Nitrogen 39 H 9-23 mg/dL Creatinine 1.60 H 0.550-1.02 mg/dL Glomerular Filtration Rate Calc 38 >90 mL/min BUN/Creatinine Ratio 24.4 H 10.0-20.0 Serum Glucose 93 74-106 mg/dL Calcium Level 10.7 H 8.7-10.4 mg/dL Plasma/Serum Blood Alcohol < 3.0 <10 mg/dL Urine Color Light-yellow Yellow Urine Clarity Clear Clear Urine pH 5.0 5.0-9.0 Urine Specific [place] 1.012 1.001-1.035 Urine Protein Negative Negative Urine Ketones Negative Negative Urine Blood Negative Negative /uL Urine Nitrite Negative Negative Urine Bilirubin Negative Negative Urine Urobilinogen Normal Negative mg/dL Urine Leukocyte Esterase 1+ Negative /uL Urine RBC 1 0 - 4 /hpf Urine Microscopic WBC 8 H 0-5 /HPF Urine Squamous Epithelial Cells Few <5 /hpf Urine Bacteria None seen None Seen /hpf Urine Glucose Normal Normal mg/dL Urine Opiates Screen Neg NEGATIVE Urine Fentanyl Screen Neg NEGATIVE Urine Barbiturates Screen Neg NEGATIVE Urine Phencyclidine Screen Neg NEGATIVE Urine Amphetamines Screen Neg NEGATIVE Urine Benzodiazepines Screen Neg NEGATIVE Urine Cocaine Screen Neg NEGATIVE Urine Cannabinoids Screen Neg NEGATIVE Assessment/Plan Assessment/Plan Syncope likely vasovagal Rule out cardiac cause - 12 lead ECG showed sinus rhythm, no av blocks, QTC 436 seconds, right axis deviation, no acute ST or T-wave changes - troponins normal - head CT shows no acute intracranial abnormality - carotid Doppler shows no hemodynamically significant stenosis or occlusion bilaterally - echocardiogram pending - orthostatic vitals pending - IV fluids 1 L given BRITTNY on CKD likely due VMN CKD stage 3 - IV fluids H/o of pulmonary embolism H/o Pulmonary artery hypertension type 4, CTEPH - continue on warfarin 1 mg daily, on 2 mg - held the Bumex(at home patient takes Bumex 2 mg b.i.d.) as the patient does not have any signs of fluid overload - continued on macitentan 10 and riociguat 2.5levo Goals of care discussed with the patient for over 23 minutes. Full code Time spent: 41 minutes Plan discussed with Dr. Ardon Plan discussed with: Patient My Orders Orders - JANETT DEL VALLE Procedure Category Date Status Time Admit ADMIT 08/20/24 Transmitted 23:35 Stat Ekg For Chest IVY 08/20/24 In Process Pain 23:35 Notify Of Changes IVY 08/20/24 In Process From Base 23:35 Rag Sorter For IVY 08/20/24 In Process 24 Hours 23:35 Carotid Duplx W Color US 08/20/24 Resulted DOP 23:35 Echo 2d Mode Cardiac US 08/20/24 Logged DOP 23:35 Complete Blood Count LAB 08/21/24 Logged 04:00 Basic Metabolic Panel LAB 08/21/24 Logged 04:00 Thyroid Stimulating LAB 08/21/24 Logged Hormone 04:00 Magnesium LAB 08/21/24 Logged 04:00 Urine Bacterial MARÍA 08/20/24 In Process Culture 23:35 Regular Diet DIET 08/21/24 Transmitted Breakfast Orthostatic Vital ED NURSING 08/21/24 Transmitted Signs Sodium Chloride 0.9% PHA 08/20/24 In Process 23:45 Warfarin Sodium PHA 08/21/24 Pending (Coumadin) 17:00 Date of Service: Aug 20, 2024 Billing Provider: JAVIER ARDON MD Common Visit Codes: [id number] INP/OBS CARE (HIGH) Secondary Visit Codes: [id number] CARE PLAN 30 MINUTES JANETT DEL VALLE RESIDENT Aug 21, 2024 03:08
[2024-08-21] MEDS: LEVOTHYROXINE SODIUM 25 MCG TAB PO SCH (06:09)
[2024-08-21] MEDS: HYDROcodone-ACET 5/325MG TAB PO ONE (06:10)
[2024-08-21 06:20] LABS: Basophils # (auto) 0.1 10 ^3/uL (0-0.2); Basophils % (auto) 0.7 % (0.0-2.0); Eosinophils # (auto) 0.2 10 ^3/uL (0-0.8); Hematocrit 42.5 % (36.0-46.0); Hemoglobin 14.5 g/dL (12.2-16.2); Lymphocytes # (auto) 1.3 10 ^3/uL (0.4-5.4); Lymphocytes % (auto) 14.1 % (10.0-50.0); Mean Corpuscular Hemoglobin 29.1 pg (28.0-32.0); Mean Corpuscular Hgb Conc. 34.1 g/dL (32.0-36.0); Mean Corpuscular Volume 85.5 fL (80.0-100.0); Monocytes # (auto) 0.7 10 ^3/uL (0-1.3); Monocytes % (auto) 8.4 % (0.0-12.0); Neutrophils # (auto) 6.7 10 ^3/uL (1.6-8.6); Neutrophils % (auto) 74.8 % (37.0-80.0); Nucleated Red Blood Cells % 0.1 %; Platelet Count (auto) 285 10^3/uL (140-450); Red Blood Cells 4.97 10^6/uL (4.0-5.20); White Blood Cell 8.9 10^3/uL (4.4-10.8)
[2024-08-21 06:37] LABS: Anion Gap 10 (5-15); Carbon Dioxide 25 mmol/L (20-31); Sodium 144 mmol/L (136-145)
[2024-08-21 06:38] LABS: Calcium 9.6 mg/dL (8.7-10.4); Chloride 109 mmol/L (98-107); Potassium 3.2 mmol/L (3.5-5.1)
[2024-08-21 06:43] LABS: Magnesium 2.2 mg/dL (1.6-2.6)
[2024-08-21 06:48] LABS: Blood Urea Nitrogen 32 mg/dL (9-23); Glucose 110 mg/dL (74-106)
[2024-08-21] MEDS: SOD CHL 0.9%/ KCL 40MEQ 1,000 ML IV ONE (16:47)
[2024-08-21] MEDS ORDERED: WARFARIN SODIUM 1 MG TAB PO SCH ×2 (17:00)
--- NOTE | 2024-08-21 17:42 | DVHPN2 ---
Subjective Patient reporting neck pain. Reviewed: Care Plan, H&P, Labs, Medications Changes from previous H/P or p: No Changes General: Per HPI Objective Vitals Vital Signs Date Time Temp Pulse Resp B/P (MAP) Pulse Ox O2 Delivery O2 Flow Rate FiO2 08/21/24 16:30 98.1 66 18 100/60 (73) 93 98.1 08/21/24 08:00 Nasal Cannula* 2 28 General Appearance: Alert, Oriented X3, Cooperative, No acute distress HEENT: Atraumatic, PERRLA Lungs: Clear to auscultation, Normal air movement Cardiovascular: Normal S1, Normal S2 Abdomen: Normal bowel sounds, Soft, No tenderness, No hepatospenomegaly Musculoskeletal: Normal sensory function, Normal motor function Skin: Dry, Intact Psych/Mental Status: Mental status NL, Mood NL Medications Current Medications Medications Dose Ordered Sig/Janet Route Start Time Stop Time Status Last Admin Dose Admin Warfarin Sodium 1 mg DAILY@17 PO 08/21/24 17:00 UNV Patient Own Medication 1 DAILY PO 08/21/24 10:00 Patient Own Medication 1 TID PO 08/21/24 14:00 Levothyroxine Sodium 25 mcg QAM@0600 PO 08/21/24 06:00 08/21/24 06:09 25 MCG Warfarin Sodium RX PROTOCOL PER PHARMACY PO 08/21/24 13:15 Acetaminophen/ Hydrocodone Bitart 1 tab Q4HPRN PRN PO 08/21/24 17:15 UNV Laboratory Results Laboratory Tests 08/21/24 06:00 Chemistry Test 08/21/24 06:00 Calcium Level 9.6 mg/dL (8.7-10.4) Magnesium Level 2.2 mg/dL (1.6-2.6) HgA1c, TSH Test 08/21/24 06:00 Thyroid Stimulating Hormone (TSH) 2.57 uIU/mL (0.55-4.78) Urinalysis Test 08/20/24 12:58 Urine Color Light-yellow (Yellow) Urine Clarity Clear (Clear) Urine pH 5.0 (5.0-9.0) Urine Specific [place] 1.012 (1.001-1.035) Urine Protein Negative (Negative) Urine Ketones Negative (Negative) Urine Blood Negative /uL (Negative) Urine Nitrite Negative (Negative) Urine Bilirubin Negative (Negative) Urine Urobilinogen Normal mg/dL (Negative) Urine Leukocyte Esterase 1+ /uL (Negative) Urine RBC 1 /hpf (0 - 4) Urine Microscopic WBC 8 /HPF (0-5) H Urine Squamous Epithelial Cells Few /hpf (<5) Urine Bacteria None seen /hpf (None Seen) Urine Glucose Normal mg/dL (Normal) Labs and/or images reviewed: Labs reviewed by me, Image(s) reviewed by me Assessment/Plan Assessment/Plan Impression: -syncope with collapse -pulmonary hypertension -chronic kidney disease stage IIIB -hypovolemic hypotension -hypokalemia Plan: -stop Bumex -IV hydration -potassium replacement -continue Opsumit and Adempas -CT scan of the cervical spine -repeat labs in a.m. -nephrology consultation -reassess for discharge in a.m. Total time spent with patient discussing and formulating plan of care: 35 minutes. This medical document was created using an electronic medical record system with [employer] dictation system. Although this document has been carefully reviewed, there may still be some phonetic and typographical errors. These areas are purely typographical due to imperfections of the software programs, and do not reflect any compromise in the patient's medical care. Plan discussed with: Patient, Other (RN) My Orders Orders - BASILIO ALICIA NP Procedure Category Date Status Time Sod Chl 0.9%/ Kcl PHA 08/21/24 In Process 40meq 15:00 Basic Metabolic Panel LAB 08/22/24 Verified 04:00 Hydrocodone-Acet PHA 08/21/24 Logged 5/325mg Tab ([place] 17:[address] 08/21/24 Taken Contrast 17:12 Date of Service: Aug 21, 2024 Billing Provider: BASILIO ALICIA NP Common Visit Codes: [id number] INP/OBS CARE(HIGH) BASILIO ALICIA NP Aug 21, 2024 17:42
[2024-08-21] MEDS: HYDROcodone-ACET 5/325MG TAB PO PRN (18:01)
--- NOTE | 2024-08-21 19:07 | DVH ---
EXAM: CT CERVICAL WITHOUT CONTRAST INDICATION: s/p mechanical fall. Neck pain EXAM DATE: 08/21/2024 05:24 PM COMPARISON: None TECHNIQUE: Multiple axial CT images of the cervical spine were obtained using bone algorithm. Axial a nd coronal reformatting was done. Bone and soft tissue windows were reviewed. Radiation Dose Information: CT Dose: CTDI volume is 25.19 mGy. Dose-length product is 635.31 mGy*cm FINDINGS: The cervical alignment is intact. No acute cervical spine fracture is identified. The vertebral body heights are intact. No suspicious osseous lesions are identified. Straightening of the normal cervical lordotic curve may be secondary to patient positioning or muscle spasm. No significant degenerative changes are identified. There is no prevertebral soft tissue swelling. IMPRESSION: 1. No evidence of acute cervical spine fracture or traumatic malalignment. 2. Straightening of the normal cervical lordotic curve may be secondary to positioning or muscle spas m. All CT scans at this medical facility are performed using dose modulation techniques as appropriate t o a performed exam including the following: Automated exposure control was utilized; adjustment of th e MA and/or KV according to patient size; and use of iterative reconstruction technique.
[2024-08-21] MEDS ORDERED: ALL100T PO (23:43)
[2024-08-22] VITALS (7 sets, daily range): BP systolic 79–102; BP diastolic 47–68; PULSE 63–70; RESP 17–18; TEMP 36.7; O2SAT 92–97
[2024-08-22] MEDS: ALLOPURINOL 100 MG TAB PO SCH (00:24)
[2024-08-22 07:14] LABS: Basophils # (auto) 0 10 ^3/uL (0-0.2); Basophils % (auto) 0.7 % (0.0-2.0); Eosinophils # (auto) 0.2 10 ^3/uL (0-0.8); Eosinophils % (auto) 4.8 % (0.0-7.0); Hematocrit 42.3 % (36.0-46.0); Hemoglobin 14.1 g/dL (12.2-16.2); Lymphocytes # (auto) 1.2 10 ^3/uL (0.4-5.4); Lymphocytes % (auto) 26.2 % (10.0-50.0); Mean Corpuscular Hemoglobin 28.8 pg (28.0-32.0); Mean Corpuscular Hgb Conc. 33.3 g/dL (32.0-36.0); Mean Corpuscular Volume 86.3 fL (80.0-100.0); Monocytes # (auto) 0.4 10 ^3/uL (0-1.3); Neutrophils # (auto) 2.7 10 ^3/uL (1.6-8.6); Neutrophils % (auto) 59.3 % (37.0-80.0); Platelet Count (auto) 252 10^3/uL (140-450); Red Cell Distribution Width 13.8 % (11.8-14.3); White Blood Cell 4.5 10^3/uL (4.4-10.8)
[2024-08-22 07:22] LABS: Potassium 4.3 mmol/L (3.5-5.1); Sodium 142 mmol/L (136-145)
[2024-08-22 07:23] LABS: Anion Gap 10 (5-15); Carbon Dioxide 24 mmol/L (20-31)
[2024-08-22 07:28] LABS: Albumin 4.1 g/dL (3.2-4.8); BUN/Creatinine Ratio 20.5 (10.0-20.0); Glucose 93 mg/dL (74-106)
[2024-08-22 07:29] LABS: Blood Urea Nitrogen 24 mg/dL (9-23); Chloride 108 mmol/L (98-107)
[2024-08-22 07:36] LABS: INR 2.83 (0.9-1.15); Partial Thromboplastin Time 41.3 SEC (24.5-34.5); Prothrombin Time 27.1 sec (9.3-11.8)
--- NOTE | 2024-08-22 13:05 | DVHDS2 ---
Discharge Summary Date of Admission Aug 20, 2024 at 23:35 Date of Discharge: Aug 22, 2024 Admitting Diagnosis Syncope with collapse secondary to hypotension Labs/Diagnostic Data: Laboratory Results Test 08/22/24 06:14 08/21/24 06:00 08/21/24 02:18 08/20/24 16:04 White Blood Count 4.5 10^3/uL (4.4-10.8) Red Blood Count 4.90 10^6/uL (4.0-5.20) Hemoglobin 14.1 g/dL (12.2-16.2) Hematocrit 42.3 % (36.0-46.0) Mean Corpuscular Volume 86.3 fL (80.0-100.0) Mean Corpuscular Hemoglobin 28.8 pg (28.0-32.0) Mean Corpuscular Hemoglobin Concent 33.3 g/dL (32.0-36.0) Red Cell Distribution Width 13.8 % (11.8-14.3) Platelet Count 252 10^3/uL (140-450) Mean Platelet Volume 7.9 fL (6.9-10.8) Neutrophils (%) (Auto) 59.3 % (37.0-80.0) Lymphocytes (%) (Auto) 26.2 % (10.0-50.0) Monocytes (%) (Auto) 9.0 % (0.0-12.0) Eosinophils (%) (Auto) 4.8 % (0.0-7.0) Basophils (%) (Auto) 0.7 % (0.0-2.0) Neutrophils # (Auto) 2.7 10 ^3/uL (1.6-8.6) Lymphocytes # (Auto) 1.2 10 ^3/uL (0.4-5.4) Monocytes # (Auto) 0.4 10 ^3/uL (0-1.3) Eosinophils # (Auto) 0.2 10 ^3/uL (0-0.8) Basophils # (Auto) 0 10 ^3/uL (0-0.2) Nucleated Red Blood Cells 0.0 % Prothrombin Time 27.1 sec (9.3-11.8) Prothrombin Time INR 2.83 (0.9-1.15) Activated Partial Thromboplast Time 41.3 SEC (24.5-34.5) Sodium Level 142 mmol/L (136-145) Potassium Level 4.3 mmol/L (3.5-5.1) Chloride Level 108 mmol/L (98-107) Carbon Dioxide Level 24 mmol/L (20-31) Anion Gap 10 (5-15) Blood Urea Nitrogen 24 mg/dL (9-23) Creatinine 1.17 mg/dL (0.550-1.02) Glomerular Filtration Rate Calc 55 mL/min (>90) BUN/Creatinine Ratio 20.5 (10.0-20.0) Serum Glucose 93 mg/dL (74-106) Calcium Level 9.0 mg/dL (8.7-10.4) Albumin 4.1 g/dL (3.2-4.8) Magnesium Level 2.2 mg/dL (1.6-2.6) Thyroid Stimulating Hormone (TSH) 2.57 uIU/mL (0.55-4.78) POC Glucose 88 mg/dl (70-106) Troponin I High Sensitivity 5 ng/L (</=34) Test 08/20/24 13:09 08/20/24 12:58 Plasma/Serum Blood Alcohol < 3.0 mg/dL (<10) Urine Color Light-yellow (Yellow) Urine Clarity Clear (Clear) Urine pH 5.0 (5.0-9.0) Urine Specific [place] 1.012 (1.001-1.035) Urine Protein Negative (Negative) Urine Ketones Negative (Negative) Urine Blood Negative /uL (Negative) Urine Nitrite Negative (Negative) Urine Bilirubin Negative (Negative) Urine Urobilinogen Normal mg/dL (Negative) Urine Leukocyte Esterase 1+ /uL (Negative) Urine RBC 1 /hpf (0 - 4) Urine Microscopic WBC 8 /HPF (0-5) Urine Squamous Epithelial Cells Few /hpf (<5) Urine Bacteria None seen /hpf (None Seen) Urine Glucose Normal mg/dL (Normal) Urine Opiates Screen Neg (NEGATIVE) Urine Fentanyl Screen Neg (NEGATIVE) Urine Barbiturates Screen Neg (NEGATIVE) Urine Phencyclidine Screen Neg (NEGATIVE) Urine Amphetamines Screen Neg (NEGATIVE) Urine Benzodiazepines Screen Neg (NEGATIVE) Urine Cocaine Screen Neg (NEGATIVE) Urine Cannabinoids Screen Neg (NEGATIVE) Other Laboratory Tests 08/22/24 06:14 Brief Hx & Hospital Course: istory of Present Illness Patient is a 54-year-old female with a past medical history of chronic kidney disease stage 3-4, TBI, congestive heart failure, pulmonary hypertension, CTEPH, PE, gout, hypertension, hypothyroidism presented to the ED with a chief complaint of episode of loss of consciousness. Patient reported he she was shopping at [employer] and she went to eat a hot dog, when she started reading she reported the food to be hot and she felt it got stuck in her throat, had difficulty breathing and started to feel lightheaded following which she passed out. She was reportedly unconscious for 10-15 seconds, no abnormal movements were observed, no bowel or bladder incontinence. Patient reported that she has had similar episodes of loss of consciousness before when she gets dizzy on getting up from sitting position. Patient was diagnosed with a PE in 2017 following which she underwent open thorax surgery for removal of clot, was later diagnosed pulmonary hypertension type 4 CTEPH and is currently on medication Riociguat, macitentan and on warfarin. Patient denied any chest pain, palpitations, shortness of breath, headache, blurred vision. Course of hospitalization: Patient had CT scan of the head, followed by CT scan of the cervical spine which was negative for any acute pathology. Carotid Doppler study was negative for any flow-limiting stenosis. Review of the patient's home medications as well as vital signs upon arrival reveals that she is on multiple medications for blood pressure, pulmonary hypertension, as well as diuretics with Bumex. Patient was also found to have a blood pressure lower than 90 mmHg in the emergency room. Patient was given IV hydration with potassium replacement. Patient's blood pressure improved. Discussion was made with the patient's nephrology group regarding her Bumex 2 mg p.o. twice a day. Patient will be discharged home with instructions to cut this dose in half as well as continued all previous home medications. Patient did have periods of hypoxia while in the hospital, attributed to her pulmonary hypertension, for which she does have home O2. Patient is instructed to use O2 at 2 L/min as needed to keep saturation greater than 93%. She is also SNF to follow up with her PCP in 1-2 weeks. Physical examination General: Alert and Oriented x3. No acute distress. Well-nourished. Eyes: EOMI. Anicteric. HENT: Moist mucous membranes. Lungs: Clear to auscultation bilaterally. No accessory muscle use. Cardiovascular: Regular rate and rhythm. No murmur. No JVD. Abdomen: Soft, non-tender and non-distended. No palpable masses. Extremities: No edema. Non-tender. Skin: No rashes or lesions. Warm. Neurologic: No focal neurological deficits. CN II-XII grossly intact, but not individually tested. Psychiatric: Cooperative. Appropriate mood and affect. Total time spent with patient discussing and formulating plan of care: 35 minutes. This medical document was created using an electronic medical record system with [employer] dictation system. Although this document has been carefully reviewed, there may still be some phonetic and typographical errors. These areas are purely typographical due to imperfections of the software programs, and do not reflect any compromise in the patient's medical care. Condition at Discharge: Fair Final Diagnosis/Problems List Syncope secondary to hypotension -syncope with collapse -pulmonary hypertension -chronic kidney disease stage IIIB -hypovolemic hypotension -hypokalemia Discharge Disposition: Home Discharge Instruct/Medications Diet: Cardiac 2g Na,low cholest Activity: No Restrictions, As Tolerated Medications: Continue all home medications Decrease bumex to 1mg po bid 36 Discharge Statement: "Patient was advised to return to the ER or call 911 if any headaches, dizziness, shortness of breath, chest pain, abdominal pain, bleeding, fevers, or worsening of medical condition. Patient was counseled about treatment plan, medications, possible side effects, patientverbalized understanding. All questions were answered to the best of my ability. This discharge took greater then 30 minutes in planning, reviewing documentation, counseling the patient, and discussing with other team members." ASSESSMENT ASSESSMENT Assessment Syncope secondary to hypotension Date of Service: Aug 22, 2024 Billing Provider: BASILIO ALICIA NP Common Visit Codes: [id number] INP/OBS CARE(HIGH) BASILIO ALICIA NP Aug 22, 2024 13:05
--- NOTE | 2024-08-22 15:34 | DVHSR ---
APPROVED REPORT EXAM: Two-dimensional and M-mode echocardiogram with Doppler and color Doppler. Blood Pressure: 99/68 mmHg INDICATION Syncope H/O CTEPH RISK FACTORS Height: 5'4", Weight: 203 DIMENSIONS LVDd4.6 (3.8-5.7cm)LA (2D)4.6 (1.9-4.0cm)Aortic Root3.1 (2.0-3.7cm) LVDs2.8 (2.5-4.0cm)LA (MM) (1.9-4.0cm)Aortic Cusp Exc1.8 (1.5-2.0cm) EF (%) 65.0 (55-70%)Rt. Atrium5.3 (1.9-4.0cm)Asc. Aorta cm IVSd1.0 (0.7-1.1cm)RV (D) (1.8-2.4cm) PWd1.2 (0.7-1.1cm) Mitral Valve MitralMitral Stenosis E wave0.98m/sMV Mean GR.mmHg A wave0.83m/sMV Peak GR.mmHg E/A ratio1.22D MVAcm2 DECEL [id number] 1/2 [place] Aortic Valve Aortic ValveAortic Stenosis V10.98m/Carol Mean GR.4mmHg V21.26m/Carol Peak GR.6mmHg LVOT Diameter2.0 (1.8-2.4cm)Doppler AVA2.44cm2 Pulmonic Valve V21.02m/s Tricuspid Valve TR Velocity3.55m/s [id number] Conclusion Sinus rhythm. Biatrial enlargement. Valves are normal. EF of 60% with normal RV function. Doming of the intraventricular septum mostly in systole consisten t with a pressure overload. Severe tricuspid insufficiency with pulmonary hypertension. Edydgeal-ei-vqzeot mitral insufficiency. No pericardial effusion masses or vegetations.
[2024-08-22] MEDS ORDERED: WARFARIN SODIUM 1 MG TAB PO ONE (17:00)
--- NOTE | 2024-08-23 12:21 | ECG ---
[facility] Test Date: 2024-08-20 Test Time: 11:51:10 Pat Name: LUIS ALVES Department: ED Room: [facility]9T A Gender: F Training Director: ENRIQUE : 1970 Requested By: ROSANNA SOLIZ Order Number: [id number] Reading MD: Jeffrey Haney Measurements Intervals [place] Rate: 67 P: 26 [place]: 194 QRS: 113 QRSD: 97 T: 58 QT: 413 QTc: 436 Interpretive Statements Sinus rhythm Right axis deviation Low voltage, precordial leads Electronically Signed On 08-24-2024 17:28:32 PDT by Jeffrey Haney Please click the below link to view image of tracing.
== END 2024-08-22 16:47 | disposition home or self-care (01) | DRG 314 ==
LOC: ER 11:39 → EDBD 11:39 → OVERFLOW 23:35 → ER 23:43 → UNDODEPER 08-21 00:21 → TELE-WESTW 08-21 15:31
PROVIDERS: ATTEND Emergency Medicine
DX: I95.89 Other hypotension (principal); N17.0 Acute kidney failure with tubular necrosis; I13.0 Hypertensive heart and chronic kidney disease with heart failure and stage 1 through stage 4 chronic kidney disease, or unspecified chronic kidney disease; E86.1 Hypovolemia; E87.6 Hypokalemia; E11.22 Type 2 diabetes mellitus with diabetic chronic kidney disease; I27.20 Pulmonary hypertension, unspecified; J44.9 Chronic obstructive pulmonary disease, unspecified; N18.32 Chronic kidney disease, stage 3b; M10.9 Gout, unspecified; E03.9 Hypothyroidism, unspecified; I50.9 Heart failure, unspecified; Z83.3 Family history of diabetes mellitus; Z98.891 History of uterine scar from previous surgery; Z90.49 Acquired absence of other specified parts of digestive tract; Z88.1 Allergy status to other antibiotic agents; Z88.0 Allergy status to penicillin; Z88.8 Allergy status to other drugs, medicaments and biological substances; Z79.899 Other long term (current) drug therapy; Z86.711 Personal history of pulmonary embolism
CPT/HCPCS: 36415; 70450; 71045; 72125; 80048; 80307; 80320; 81001; 82040; 82962; 83735; 84443; 84484; 85025; 85610; 85730; 87086; 93005; 93306; 93886; 96360; G0378